=== PATIENT | female | born 1965 | race Caucasian/White ===

== ENCOUNTER → 2016-07-11 | Outpatient (CLI) | payer OTHER | LOC: BRMIMAGING 13:51 | PROVIDERS: ATTEND Family Medicine | DX: Z12.31 Encounter for screening mammogram for malignant neoplasm of breast (principal) | CPT/HCPCS: G0202 ==

== ENCOUNTER → 2016-07-21 | Outpatient (CLI) | payer OTHER | LOC: BRMIMAGING 09:30 | PROVIDERS: ATTEND Family Medicine | DX: R92.8 Other abnormal and inconclusive findings on diagnostic imaging of breast (principal) | CPT/HCPCS: 76641-PO; G0204 ==

== ENCOUNTER → 2017-01-29 | Outpatient (CLI) | payer OTHER | LOC: BRMIMAGING 08:50 | PROVIDERS: ATTEND Family Medicine | DX: R92.8 Other abnormal and inconclusive findings on diagnostic imaging of breast (principal) | CPT/HCPCS: G0204 ==

== ENCOUNTER → 2018-02-02 | Outpatient (CLI) | payer OTHER | LOC: BRMIMAGING 14:43 | PROVIDERS: ATTEND Family Medicine | DX: Z12.31 Encounter for screening mammogram for malignant neoplasm of breast (principal) ==